=== PATIENT | male | born 1995 ===

== ENCOUNTER 2019-09-13 21:25 | Emergency (ER) | payer OTHER ==
[~2019-09-13] VITALS: Ht 185.4 cm; Wt 77.3 kg
[2019-09-13 21:56] VITALS: BP 144/76
== END 2019-09-13 23:40 | disposition left against medical advice (07) ==
LOC: EMS 21:25
DX: R05 Cough (principal); Z53.21 Procedure and treatment not carried out due to patient leaving prior to being seen by health care provider